=== PATIENT | female | born 1965 | race Caucasian/White ===

== ENCOUNTER 2025-05-11 15:27 | Outpatient (CLI) | payer BC, SELFPAY ==
--- NOTE | 2025-05-11 11:00 | DI.RAD_ITS ---
Exam(s) XR KNEE RT 1V EXAM: XR KNEE RT 1V CLINICAL HISTORY: TKR Planning. TECHNIQUE: 2D digital imaging was performed. COMPARISON: No exams were available for comparison FINDINGS: Single lateral view of right knee No evidence of fracture or prominent joint effusion. There is moderate-advanced narrowing of the medial compartment of the right knee. Slightly less narrowing than is evident in the medial compartment of the opposite-left knee. Lateral compartment exhibits normal height. Bone density normal. No osseous lesions. IMPRESSION: Moderate-advanced narrowing of the medial compartment but less narrowing than is evident in the medial compartment of the opposite-left knee. DATA REPOSITORY: RADIATION DOSE DELIVERED:
--- NOTE | 2025-05-11 11:00 | DI.RAD_ITS ---
Exam(s) XR KNEE LT 1V EXAM: XR KNEE LT 1V CLINICAL HISTORY: TKR Planning. TECHNIQUE: 2D digital imaging was performed. COMPARISON: CR XR KNEE RT 1V from 05/11/2025 FINDINGS: Single lateral view of left knee There is no evidence of fracture prominent joint effusion. There is advanced narrowing the medial compartment. Lateral compartment exhibits normal height. Bone density normal. No osseous lesions. IMPRESSION: Advanced narrowing of the medial compartment of the left knee. DATA REPOSITORY: RADIATION DOSE DELIVERED:
--- NOTE | 2025-05-11 11:00 | DI.RAD_ITS ---
Exam(s) XR STANDING ALIGNMENT EXAM: XR STANDING ALIGNMENT CLINICAL HISTORY: TKR Planning. TECHNIQUE: 2D digital imaging was performed. COMPARISON: CR XR KNEE COMPLETE MIN 4V RT from 06/05/2024 CR XR KNEE RT 1V from 05/11/2025 FINDINGS: 3 views No fractures. There is moderate-severe degenerative narrowing of the medial compartments both these, slightly more so on the left side. Lateral compartments of both knees appear unremarkable. Both hips appear unremarkable as do the sacroiliac joints. Ankles unremarkable. Bone density normal. No osseous lesions. IMPRESSION: Advanced narrowing of the medial compartments of both knees, slightly more so on the left side. DATA REPOSITORY: RADIATION DOSE DELIVERED:
== END 2025-05-11 15:28 | disposition home or self-care (01) ==
LOC: DIORS 15:27
PROVIDERS: PCP Registered Nurse; Visit Provider Physician Assistant
DX: M17.12 Unilateral primary osteoarthritis, left knee (principal); M17.11 Unilateral primary osteoarthritis, right knee
CPT/HCPCS: 73560; 77073